=== PATIENT | female | born 1985 | race Caucasian/White ===

== ENCOUNTER 2019-03-20 08:53 | Outpatient (RCR) | payer BC ==
[~2019-03-20 08:53] MED LIST: AMOX500C2 PO
== END 2019-06-18 | disposition home or self-care (01) ==
LOC: CARD 08:53
PROVIDERS: ATTEND Internal Medicine Cardiovascular Disease
DX: I34.1 Nonrheumatic mitral (valve) prolapse (principal); R00.2 Palpitations
CPT/HCPCS: 93270

== ENCOUNTER → 2019-04-24 | Outpatient (CLI) | payer BC ==
[2019-04-24 16:42] VITALS: BP 101/71
--- NOTE | 2019-04-24 16:42 | Cardiology Stress Test Report ---
Stress Test Report Date of Procedure/Referring: Date of Procedure: Apr 24, 2019 PCP Annabella Pastor MD Admitting Physician Sabrina Rene MD Indications: palpitation Baseline Heart Rate: 67 Baseline Blood Pressure: Blood Pressure Systolic: 101 Blood Pressure Diastolic: 71 Baseline EKG: Baseline EKG: Normal sinus rhythm Summary/Conclusion: Summary: In summary, the patient started exercising with a baseline heart rate, blood pressure and EKG mentioned above Patient was able to exercise for a total of 10 minutes on Og protocol, 11.7 METs Maximum heart rate 199 Maximum blood pressure 145/50 Stress EKG Minimal nondiagnostic changes Recovery EKG Return to baseline Conclusion: 1. Good exercise tolerance for a total of 10 minutes on Og protocol, 11.7 METs, achieving 106 percent of maximum expected heart rate 2. Minimal nondiagnostic EKG changes with exercise returned to baseline during recovery 3. No arrhythmia was noted ANNABELLA PASTOR MD Apr 24, 2019 16:42 POS
== END ==
LOC: CARD 09:43
PROVIDERS: ATTEND Internal Medicine Cardiovascular Disease
DX: I34.1 Nonrheumatic mitral (valve) prolapse (principal); Z82.49 Family history of ischemic heart disease and other diseases of the circulatory system
CPT/HCPCS: 93017; 93306